=== PATIENT | female | born 1995 | race African-American/Black ===

== ENCOUNTER 2018-02-01 12:23 | Emergency (ER) | payer OTHER ==
[2018-02-01 13:00] VITALS: TEMP 36.5
[2018-02-01] MEDS ORDERED: ONDANSETRON INJ 2 MG/ML 2 ML VIAL IV STA ×2 (13:06→17:20)
[2018-02-01] MEDS ORDERED: KETOROLAC TROMETHAMINE 30 MG/ML VIAL IV STA (13:06)
--- NOTE | 2018-02-01 13:11 | EMERGENCY ROOM VISIT NOTE ---
History First contact with patient: 13:01 Chief Complaint: BACK PAIN Stated Complaint: BACK PAIN History of Present Illness The patient is a 23 year old female who presents to the Emergency Room with complaints of left flank pain that started 3 days ago. The history is limited secondary to pain. She denies any weakness, numbness or tingling in her legs. No urinary symptoms. No fever or chills. Review of Systems Unable to perform secondary to pain Past Medical/Surgical History Unable to obtain secondary to pain Social History Smoking Status: Unknown if Ever Smoked Current/Historical Medications Scheduled PRN Hydrocodone/Acetaminophen 5MG/325MG ([place] 5MG/325MG), 1-2 TABLET PO Q4H PRN for Pain Physical Exam Vital Signs Date Time Temp Pulse Resp B/P (MAP) Pulse Ox O2 Delivery O2 Flow Rate FiO2 02/01/18 18:03 84 110/67 98 02/01/18 14:26 83 18 109/59 100 Room Air 02/01/18 13:00 36.5 88 20 115/69 100 Room Air Physical Exam The physical exam is significantly limited secondary to pain. VITALS: Vitals are noted on the nurse's note and reviewed by myself. Vital signs stable. GENERAL: 23-year-old -[place] female, in significant discomfort SKIN: The skin was without rashes, erythema, edema, or bruising HEAD: Normocephalic atraumatic. NECK: Supple without nuchal rigidity. . Cervical spine is nontender. No JVD. HEART: Regular rate and rhythm without murmurs gallops or rubs. LUNGS: Clear to auscultation bilaterally without wheezes, rales or rhonchi. No accessory muscle use. MUSCULOSKELETAL: Strength 5/5 throughout. NEURO: Patient was alert and oriented to person place and time. Normal sensation to touch. No focal neurological deficits. Medical Decision & Procedures ER Provider Diagnostic Interpretation: CT chest IMPRESSION: 1. Acute appearing mildly displaced fracture of the posterior left 12th rib and acute appearing nondisplaced fracture of the posterior left 11th rib. No pneumothorax. 2. No additional traumatic findings within the chest. Electronically signed by: Rakan Valdivia M.D. 02/01/2018 3:15 PM Dictated Date/Time: 02/01/2018 3:[address] IMPRESSION: No fractures within the cervical spine. Trace prevertebral edema at C3 and C4. This could represent ligamentous injury. Cervical spine MRI is recommended for further evaluation. Electronically signed by: Lamberto Escalante M.D. 02/01/2018 3:14 PM Dictated Date/Time: 02/01/2018 3:[address] IMPRESSION: 1. No acute intracranial findings. 2. No calvarial fracture. Electronically signed by: Rakan Valdivia M.D. 02/01/2018 3:[address] abdomen and pelvis without contrast IMPRESSION: 1. Acute appearing minimally displaced fracture of the posterior left 12th rib and acute appearing nondisplaced fracture of the posterior left 11th rib. 2. Punctate bilateral renal calculi. No ureteral calculi or hydronephrosis. 3. Small amount of fluid within the pelvis which may be physiologic. 4. Suboptimal evaluation of the abdomen and pelvis given lack of contrast and paucity of intra-abdominal fat. Electronically signed by: Rakan Valdivia M.D. 02/01/2018 2:02 PM Dictated Date/Time: 02/01/2018 1:52 PM MRI cervical spine IMPRESSION: No prevertebral edema. No fracture or subluxation within the cervical spine. Electronically signed by: Lamberto Escalante M.D. 02/01/2018 5:24 PM Dictated Date/Time: 02/01/2018 5:18 PM Laboratory Results 02/01/18 13:20 Red Blood Count 3.81, Mean Corpuscular Volume 92.7, Mean Corpuscular Hemoglobin 32.0, Mean Corpuscular Hemoglobin Concent 34.6, Mean Platelet Volume 8.7, Neutrophils (%) (Auto) 35.0, Lymphocytes (%) (Auto) 52.8, Monocytes (%) (Auto) 7.8, Eosinophils (%) (Auto) 4.2, Basophils (%) (Auto) 0.2, Neutrophils # (Auto) 1.58, Lymphocytes # (Auto) 2.38, Monocytes # (Auto) 0.35, Eosinophils # (Auto) 0.19, Basophils # (Auto) 0.01 02/01/18 13:20 Test 02/01/18 13:20 02/01/18 13:40 White Blood Count 4.51 K/uL (4.8-10.8) Red Blood Count 3.81 M/uL (4.2-5.4) Hemoglobin 12.2 g/dL (12.0-16.0) Hematocrit 35.3 % (37-47) Mean Corpuscular Volume 92.7 fL (80-100) Mean Corpuscular Hemoglobin 32.0 pg (25-34) Mean Corpuscular Hemoglobin Concent 34.6 g/dl (32-36) Platelet Count 290 K/uL (130-400) Mean Platelet Volume 8.7 fL (7.4-10.4) Neutrophils (%) (Auto) 35.0 % Lymphocytes (%) (Auto) 52.8 % Monocytes (%) (Auto) 7.8 % Eosinophils (%) (Auto) 4.2 % Basophils (%) (Auto) 0.2 % Neutrophils # (Auto) 1.58 K/uL (1.4-6.5) Lymphocytes # (Auto) 2.38 K/uL (1.2-3.4) Monocytes # (Auto) 0.35 K/uL (0.11-0.59) Eosinophils # (Auto) 0.19 K/uL (0-0.5) Basophils # (Auto) 0.01 K/uL (0-0.2) RDW Standard Deviation 43.1 fL (36.4-46.3) RDW Coefficient of Variation 12.6 % (11.5-14.5) Immature Granulocyte % (Auto) 0.0 % Immature Granulocyte # (Auto) 0.00 K/uL (0.00-0.02) Anion Gap 7.0 mmol/L (3-11) Estimated GFR () 112.0 Estimated GFR (Non- 96.6 BUN/Creatinine Ratio 9.5 (10-20) Calcium Level 9.0 mg/dl (8.5-10.1) Total Bilirubin 0.6 mg/dl (0.2-1) Aspartate Amino Transf (AST/SGOT) 17 U/L (15-37) Alanine Aminotransferase (ALT/SGPT) 24 U/L (12-78) Alkaline Phosphatase 49 U/L (45-117) Total Protein 8.1 gm/dl (6.4-8.2) Albumin 4.5 gm/dl (3.4-5.0) Globulin 3.6 gm/dl (2.5-4.0) Albumin/Globulin Ratio 1.3 (0.9-2) Urine Color YELLOW Urine Appearance CLEAR (CLEAR) Urine pH 8.0 (4.5-7.5) Urine Specific [place] 1.023 (1.000-1.030) Urine Protein NEG (NEG) Urine Glucose (UA) NEG (NEG) Urine Ketones NEG (NEG) Urine Occult Blood NEG (NEG) Urine Nitrite NEG (NEG) Urine Bilirubin NEG (NEG) Urine Urobilinogen NEG (NEG) Urine Leukocyte Esterase NEG (NEG) Urine Test NEG (NEG) Medications Administered Medications (Trade) Dose Ordered Sig/Laurie Route Start Time Stop Time Status Last Admin Dose Admin Sodium Chloride 1,000 ml @ 999 mls/hr Q1H1M ONCE IV 02/01/18 13:15 02/01/18 14:15 DC 02/01/18 13:38 999 MLS/HR Ketorolac Tromethamine (Toradol Inj) 30 mg NOW STAT IV 02/01/18 13:06 02/01/18 13:08 DC 02/01/18 13:38 30 MG Morphine Sulfate (MoRPHine SULFATE INJ) 4 mg Q1H PRN IV 02/01/18 13:15 02/01/18 18:24 DC 02/01/18 13:38 4 MG Ondansetron HCl (Zofran Inj) 4 mg NOW STAT IV 02/01/18 13:06 02/01/18 13:08 DC 02/01/18 13:37 4 MG Hydromorphone HCl (Dilaudid Inj) 1 mg ONE ONCE IV 02/01/18 14:30 02/01/18 14:31 DC 02/01/18 14:25 1 MG Ondansetron HCl (Zofran Inj) 4 mg NOW STAT IV 02/01/18 17:20 02/01/18 17:21 DC 02/01/18 17:20 4 MG ED Course Patient was seen and examined Vital signs including blood pressure were reviewed medications list was verified with patient Labs were obtained, and a saline lock was established The patient was medicated with morphine 4 mg, Toradol 30 mg and Zofran 4 mg IV. She was hydrated with 1 L of normal saline. Upon reevaluation, the patient was still complaining of pain. She was ordered Dilaudid 1 mg IV. We thoroughly reviewed her CT scan results. She was placed in a cervical collar. An MRI was performed and reviewed Findings were discussed with the patient. She voiced understanding, and was comfortable being discharged home I reviewed discharge instructions the patient. They voiced understanding and had no further questions. Medical Decision Differential diagnosis: Ureteral stone, musculoskeletal pain, intra-abdominal injury/trauma, physical abuse This patient is a 23-year-old female that presents to the emergency department complaining of left flank pain that started 3 days ago. The history and physical were severely limited secondary to pain. A CT scan was performed. This was consistent with 2 posterior rib fractures. The patient denied any significant trauma. I was concerned there could be further injuries, which is why a CT of the head, neck and chest were also performed. There is questionable prevertebral swelling on the CT. An MRI was recommended. No abnormalities were noted on the neck of the MRI. The patient had good pain relief in the emergency department. I believe she is stable to be discharged home. She will require a short course of narcotics. She was also given an incentive spirometer, and encouraged to follow-up closely with her primary care physician. She will return to the ED with any new or worsening symptoms Of note, the patient repeatedly denied any physical abuse This chart was completed in part utilizing [employer] Speech Voice Recognition software. Attempts were made to minimize the grammatical errors, random word insertions, pronoun errors and incomplete sentences. Any formal questions or concerns about the content, text or information contained within the body of this dictation should be directly addressed to the provider for clarification. Medication Reconcilliation Current Medication List: was personally reviewed by me Blood Pressure Screening Patient's blood pressure: Normal blood pressure Impression Primary Impression: Rib fractures Departure Information Dispostion Home / Self-Care Condition GOOD Prescriptions Hydrocodone/Acetaminophen 5MG/325MG ([place] 5MG/325MG) Tab 1-2 TABLET PO Q4H Y for Pain, #20 TAB For Initial Treatment Prov: Cecilia Almonte PA-C 02/01/18 Forms HOME CARE DOCUMENTATION FORM, IMPORTANT VISIT INFORMATION Patient Instructions [facility] Additional Instructions You were evaluated in the emergency department for left flank pain. Imaging reveals 2 broken ribs. Please use incentive spirometer 6-8 times every hour while awake for the next week Ibuprofen 600 mg every 6 hours as needed for pain [place] 1-2 tabs every 4 hours for severe pain. Do not drink alcohol or drive while taking this medication. This may be taken with ibuprofen, but avoid Tylenol. Please follow-up with your primary care physician within the next 24-48 hours for a recheck Do not hesitate to return to the emergency department with any new, worsening or concerning symptoms It was a pleasure participating in your care today Work Instructions Return To Work: 2 days
[2018-02-01] MEDS ORDERED: SODIUM CHLORIDE 0.9% 1000ML 1,000 ML IV ONE (13:15)
[2018-02-01] MEDS ORDERED: MoRPHine SULFATE 4 MG/ML 1 ML CARP\\VIAL IV PRN (13:15)
[2018-02-01 13:32] LABS: HEMATOCRIT 35.3 % (37-47); HEMOGLOBIN 12.2 g/dL (12.0-16.0); MEAN CELL VOLUME 92.7 fL (80-100); MEAN CORPUSCULAR HGB CONC 34.6 g/dl (32-36); MEAN PLATELET VOLUME 8.7 fL (7.4-10.4); PLATELET COUNT 290 K/uL (130-400); RED CELL DISTRIBUTION WIDTH CV 12.6 % (11.5-14.5); RED CELL DISTRIBUTION WIDTH SD 43.1 fL (36.4-46.3); WHITE BLOOD COUNT 4.51 K/uL (4.8-10.8)
[2018-02-01 13:45] LABS: ALBUMIN 4.5 gm/dl (3.4-5.0); ALT/SGPT 24 U/L (12-78); AST/SGOT 17 U/L (15-37); BLOOD UREA NITROGEN 8 mg/dl (7-18); CARBON DIOXIDE 25 mmol/L (21-32); CREATININE 0.84 mg/dl (0.60-1.20); GLUCOSE 87 mg/dl (70-99); SODIUM 138 mmol/L (136-145)
[2018-02-01 13:48] LABS: ALKALINE PHOSPHATASE 49 U/L (45-117); TOTAL PROTEIN 8.1 gm/dl (6.4-8.2)
--- NOTE | 2018-02-01 14:03 | DIAGNOSTIC IMAGING REPORT ---
CT OF THE ABDOMEN AND PELVIS WITHOUT CONTRAST, STONE PROTOCOL CLINICAL HISTORY: Left flank pain. COMPARISON STUDY: None. TECHNIQUE: Helical axial images of the abdomen and pelvis were obtained without IV or oral contrast according to renal stone protocol. A dose lowering technique was utilized adhering to the principles of ALARA. FINDINGS: Visualized portions of the lower chest demonstrate an acute appearing nondisplaced fracture if the posterior left 11th rib and an acute appearing mildly displaced fracture of the posterior left 12th rib. No pneumothorax is shown within visualized portions of the chest. There are punctate bilateral renal calculi. There is no hydronephrosis. The course of the ureters is difficult to follow on this exam. However, pelvic calcifications likely reflect phleboliths. There is no perinephric infiltration. The renal. There are hyperdense. Evaluation of the abdomen and pelvis is suboptimal given a paucity of fat and lack of contrast. A small amount of low-attenuation fluid within the pelvis is noted. There is no evidence for a bowel obstruction. No pneumatosis, free air or portal venous gas is present. The appendix is normal. No suspicious osseous lesions are present. IMPRESSION: 1. Acute appearing minimally displaced fracture of the posterior left 12th rib and acute appearing nondisplaced fracture of the posterior left 11th rib. 2. Punctate bilateral renal calculi. No ureteral calculi or hydronephrosis. 3. Small amount of fluid within the pelvis which may be physiologic. 4. Suboptimal evaluation of the abdomen and pelvis given lack of contrast and paucity of intra-abdominal fat. Electronically signed by: Rakan Valdivia M.D. 02/01/2018 2:02 PM Dictated Date/Time: 02/01/2018 1:52 PM
[2018-02-01 14:17] LABS: BASO % 0.2 %; BASO ABS # 0.01 K/uL (0-0.2); EOS % 4.2 %; EOS ABS # 0.19 K/uL (0-0.5); LYMPH % 52.8 %; LYMPH ABS # 2.38 K/uL (1.2-3.4); MONO % 7.8 %; MONO ABS # 0.35 K/uL (0.11-0.59); NEUT ABS # 1.58 K/uL (1.4-6.5)
[2018-02-01] MEDS ORDERED: HYDROmorphone INJ 1 MG/ML SYR IV ONE (14:30)
[2018-02-01] MEDS ORDERED: OPTIRAY 320 IV PRN (14:45)
--- NOTE | 2018-02-01 15:05 | DIAGNOSTIC IMAGING REPORT ---
CT OF THE HEAD WITHOUT CONTRAST CLINICAL HISTORY: Trauma. COMPARISON STUDY: No previous studies for comparison. TECHNIQUE: Helical axial images of the head were obtained without IV contrast. Automated exposure control was utilized for the study. A dose lowering technique was utilized adhering to the principles of ALARA. FINDINGS: No acute intracranial hemorrhage, midline shift or mass affect is present. Ventricular system is normal. Basilar cisterns are patent. There are no extra-axial collections. Ortega-white differentiation is maintained. There is no calvarial fracture. IMPRESSION: 1. No acute intracranial findings. 2. No calvarial fracture. Electronically signed by: Rakan Valdivia M.D. 02/01/2018 3:04 PM Dictated Date/Time: 02/01/2018 3:02 PM
--- NOTE | 2018-02-01 15:16 | DIAGNOSTIC IMAGING REPORT ---
CT OF THE CHEST WITH IV CONTRAST CLINICAL HISTORY: Trauma. COMPARISON STUDY: No previous studies for comparison. TECHNIQUE: Following IV administration of 111 mL of [id number]-320, helical axial images of the chest were obtained. Sagittal and coronal reconstructions were viewed as well as maximal intensity projections on an independent 3-D workstation. A dose lowering technique was utilized adhering to the principles of ALARA. CT DOSE: 1106.30 mGy.cm FINDINGS: There is no evidence of traumatic injury to the thoracic aorta. The size of the heart is normal. There is no pericardial effusion. There is no thoracic lymphadenopathy. No pulmonary contusion or pneumothorax is present. There is no consolidation. Mild linear right middle lobe opacity suggests atelectasis. There is an acute appearing nondisplaced fracture of the posterior left 11th rib and an acute appearing mildly displaced fracture of the posterior left 12th rib. No acute thoracic spine fracture is identified. IMPRESSION: 1. Acute appearing mildly displaced fracture of the posterior left 12th rib and acute appearing nondisplaced fracture of the posterior left 11th rib. No pneumothorax. 2. No additional traumatic findings within the chest. Electronically signed by: Rakan Valdivia M.D. 02/01/2018 3:15 PM Dictated Date/Time: 02/01/2018 3:08 PM
--- NOTE | 2018-02-01 15:16 | DIAGNOSTIC IMAGING REPORT ---
CERVICAL SPINE CT CT DOSE: HISTORY: Neck pain. trauma TECHNIQUE: Multiaxial CT images of the cervical spine were performed and reformatted in the sagittal and coronal plane without the use of contrast. A dose lowering technique was utilized adhering to the principles of ALARA. COMPARISON: None. FINDINGS: No fractures. No subluxation. Trace prevertebral edema at C3-C4. The C1-C2 interval are intact. No pneumothorax. IMPRESSION: No fractures within the cervical spine. Trace prevertebral edema at C3 and C4. This could represent ligamentous injury. Cervical spine MRI is recommended for further evaluation. Electronically signed by: Lamberto Escalante M.D. 02/01/2018 3:14 PM Dictated Date/Time: 02/01/2018 3:04 PM
--- NOTE | 2018-02-01 17:25 | DIAGNOSTIC IMAGING REPORT ---
CERVICAL SPINE MRI HISTORY: ? Ligamentous injury prevertebral swelling C3-C4 TECHNIQUE: Multiplanar multisequence MRI of the cervical spine was performed without the use of contrast. COMPARISON STUDY: Cervical spine CT 01/28/2014. FINDINGS: Straightening of the cervical spine. Alignment is intact. No fractures identified. Disc spaces are preserved. Prevertebral soft tissues and the C1-C2 interval are intact. Specifically, there is no prevertebral edema at C3-C4. The cervical spinal cord is normal in course, caliber, and signal intensity. No disc herniations. The visualized posterior fossa is unremarkable. C2-C3: No significant central canal or neural foraminal narrowing. C3-C4: No significant central canal or neural foraminal narrowing. C4-C5: No significant central canal or neural foraminal narrowing. C5-C6: No significant central canal or neural foraminal narrowing. C6-C7: No significant central canal or neural foraminal narrowing. C7-T1: No significant central canal or neural foraminal narrowing. IMPRESSION: No prevertebral edema. No fracture or subluxation within the cervical spine. Electronically signed by: Lamberto Escalante M.D. 02/01/2018 5:24 PM Dictated Date/Time: 02/01/2018 5:18 PM
[2018-02-01] MEDS ORDERED: HYDR-5688 PO (17:36)
[2018-02-01 18:03] VITALS: BP 110/67; PULSE 84; O2SAT 98
== END 2018-02-01 18:05 | disposition home or self-care (01) ==
LOC: C.EDB 12:25 → C.EDD 18:05
DX: S22.41XA Multiple fractures of ribs, right side, initial encounter for closed fracture (principal); X58.XXXA Exposure to other specified factors, initial encounter